=== PATIENT | female | born 1965 | race Caucasian/White ===

== ENCOUNTER 2019-10-07 12:44 | Day surgery (SDC) | payer BC ==
[~2019-10-07] VITALS: Ht 177.8 cm; Wt 92.3 kg
[~2019-10-07 12:44] MED LIST: ACID1TAB3 PO; AMPH20TA2 PO; CEFT1VIA IV; CEPH-376 PO; DOXE10CA PO; DOXY100C2 PO; DOXY20TA5 PO; DULO30CA2 PO; FLUC200T PO; FLUO20CA19 PO; FLUO40CA9 PO; HYDR12.517 PO; LISI-167 PO; MULT1TAB21 PO; OXYC15TA3 PO; PREG150C PO; VERMOX; iron; magnesium
[2019-10-07] MEDS ORDERED: AMPH30CA6 PO (13:25)
[2019-10-07] MEDS ORDERED: RIVA20TA PO (13:28)
[2019-10-07] MEDS ORDERED: MORP30TA81 PO (13:28)
[2019-10-07] MEDS ORDERED: HYDROMORPHONE PO (13:28)
[2019-10-07] MEDS ORDERED: DIPHENHYDRAMINE 50 MG/ML, 1ML IVPush ONE (13:30)
[2019-10-07 13:39] VITALS: BP 113/69
[2019-10-07] MEDS ORDERED: DIPHENHYDRAMINE 50 MG/ML, 1ML ONE (14:24)
[2019-10-07] MEDS ORDERED: FENTANYL PF 100 MCG/2ML ONE (14:57)
[2019-10-07] MEDS ORDERED: HEPARIN 1,000 UNITS/ML, 10ML ONE (14:57)
[2019-10-07] MEDS ORDERED: LIDOCAINE-MPF 1%, 5ML ONE (14:57)
[2019-10-07] MEDS ORDERED: MIDAZOLAM 1 MG/ML, 5ML ONE (14:57)
[2019-10-07 16:09] LABS: BASOPHILS # (AUTO) 0.04 x10^3/uL (0-0.1); BASOPHILS % (AUTO) 1 % (0-1); EOSINOPHILS # (AUTO) 0.07 x10^3/uL (0-0.4); EOSINOPHILS % (AUTO) 1 % (1-7); LYMPHOCYTES # (AUTO) 1.18 x10^3/uL (1-3.4); LYMPHOCYTES % (AUTO) 16 % (22-44); MD NO; MEAN CORPUSCULAR HEMOGLOBIN 23.7 pg (27.0-34.8); MEAN CORPUSCULAR HGB CONC 31.7 g/dL (32.4-35.8); MEAN CORPUSCULAR VOLUME 74.7 fL (80-100); MEAN PLATELET VOLUME 7.8 fL (7.4-10.4); MONOCYTES # (AUTO) 0.42 x10^3/uL (0.2-0.8); MONOCYTES % (AUTO) 6 % (2-9); NEUTROPHILS # (AUTO) 5.67 x10^3/uL (1.8-6.8); NEUTROPHILS % (AUTO) 77 % (42-75); PLATELET COUNT 552 x10^3/uL (130-400); RED CELL DISTRIBUTION WIDTH 22.7 % (9.6-15.2)
== END 2019-10-07 17:09 | disposition home or self-care (01) ==
LOC: CACL 12:44
PROVIDERS: ATTEND Internal Medicine Cardiovascular Disease
DX: R06.02 Shortness of breath (principal); I10 Essential (primary) hypertension; D64.9 Anemia, unspecified; E66.3 Overweight; Z68.29 Body mass index [BMI] 29.0-29.9, adult; Z79.01 Long term (current) use of anticoagulants; Z79.899 Other long term (current) drug therapy; Z88.6 Allergy status to analgesic agent; Z88.8 Allergy status to other drugs, medicaments and biological substances
CPT/HCPCS: 36415; 85025; 93451; 99156; C1894; J1200; J1644; J2250; J3010; 99157